=== PATIENT | female | born 1945 | race Asian ===

== ENCOUNTER 2018-07-07 08:14 | Inpatient (IN) | payer BC ==
[2018-07-07] MEDS ORDERED: FENTAnyl 50 MCG/ML VIAL (10:50)
[2018-07-07] MEDS ORDERED: PROPOFOL 20 ML (10:50)
[2018-07-07] MEDS ORDERED: MIDAZOLAM 1 MG/ML 2 ML INJ (10:50)
[2018-07-07] MEDS ORDERED: CEFAZOLIN 1 GM INJ (10:50)
[2018-07-07] MEDS: LACTATED RINGER'S 1,000 ML IV* (11:50)
[2018-07-07] MEDS: CEFAZOLIN 2 GM/50 ML (PMX) 50 ML IVPB (12:15)
[2018-07-07] MEDS ORDERED: BUPIVACAINE 0.75%/DEXT (SPINAL) 2 ML INJ (12:28)
[2018-07-07] MEDS: TRANEXAMIC ACID 1,000 MG in NS 100 ML PRE-OP X1 IVPB (12:30)
[2018-07-07] MEDS ORDERED: PHENYLephrine (100 MCG/ML) 5ML SYG (12:40)
[2018-07-07] MEDS: POLYMYXIN B 500000 UNIT INJ (12:51)
[2018-07-07] MEDS: BACITRACIN 50000 UNITS INJ (12:51)
[2018-07-07] MEDS ORDERED: ALBUMIN HUMAN 5% 500 ML (13:17)
[2018-07-07] MEDS ORDERED: DEXAMETHASONE 4 MG/ML 1 ML INJ (13:19)
[2018-07-07] MEDS ORDERED: METOCLOPRAMIDE 10 MG INJ (13:19)
[2018-07-07] MEDS ORDERED: ONDANSETRON 4 MG INJ (13:19)
[2018-07-07] MEDS ORDERED: ACETAMINOPHEN 500 MG TAB PO (13:30)
[2018-07-07] MEDS ORDERED: FENTAnyl 50 MCG/ML VIAL IV ×2 (13:30)
[2018-07-07] MEDS ORDERED: OXYCODONE/ACETAMINOPHEN (5/325) TAB PO ×2 (13:30)
[2018-07-07] MEDS ORDERED: NALBUPHINE HCL (10 MG/1 ML) INJ IV (13:30)
[2018-07-07] MEDS ORDERED: ALBUMIN HUMAN 5% 250 ML IV (13:30)
[2018-07-07] MEDS ORDERED: METOCLOPRAMIDE 10 MG INJ IV (13:30)
[2018-07-07] MEDS ORDERED: MEPERIDINE 25 MG INJ IV (13:30)
[2018-07-07] MEDS ORDERED: ONDANSETRON 4 MG INJ IV ×2 (13:30)
[2018-07-07] MEDS ORDERED: morphine 2 MG INJ IV ×2 (13:30)
[2018-07-07] MEDS ORDERED: EPHEDrine SULFATE 50 MG/5 ML SYG IV (13:30)
[2018-07-07] MEDS ORDERED: LABETALOL HCL 20MG INJ IV (13:30)
[2018-07-07] MEDS ORDERED: NALOXONE (0.4 MG/ML) INJ IV (13:30)
[2018-07-07] MEDS ORDERED: DIPHENHYDRAMINE 50 MG INJ IV ×2 (13:30)
[2018-07-07] MEDS ORDERED: HYDROmorphONE 1 MG/5 ML IV SYRINGE IV ×3 (13:30)
[2018-07-07] MEDS ORDERED: hydrALAzine 20 MG INJ IV (13:30)
[2018-07-07] MEDS ORDERED: HYDROmorphONE 0.5 MG/0.5 ML SYG IV ×2 (13:30)
[2018-07-07] MEDS ORDERED: EPHEDrine SULFATE 50 MG/5 ML SYG (13:53)
[2018-07-07] MEDS: TRANEXAMIC ACID 1,000 MG in NS 100 ML INTRA-OP X1 IVPB (14:00)
[2018-07-07] MEDS ORDERED: ROPIVACAINE 0.2% 20 ML VIAL (14:12)
[2018-07-07] MEDS ORDERED: SENNA/DOCUSATE NA (8.6MG/50MG) TAB PO (14:30)
[2018-07-07] MEDS: SOD CHLORIDE 0.9% 1,000 ML IV (15:00)
[2018-07-07] MEDS: CEFAZOLIN 1 GM/50 ML (PMX) 50 ML IVPB ×2 (15:00→22:15)
[2018-07-07] MEDS: ASPIRIN 81 MG TAB PO (22:14)
[2018-07-07] MEDS: oxyCODONE 5 MG TAB PO (22:15)
[2018-07-08] MEDS ORDERED: ALPRAZOLAM 0.5 MG TAB PO (00:30)
[2018-07-08] MEDS ORDERED: hydrALAzine 20 MG INJ IV (00:30)
[2018-07-08] MEDS: ALBUTEROL HFA 8 GM INHALER INH ×6 (01:00→20:40)
[2018-07-08] MEDS: SOD CHLORIDE 0.9% 1,000 ML IV ×2 (02:48→15:18)
[2018-07-08] MEDS: CEFAZOLIN 1 GM/50 ML (PMX) 50 ML IVPB (06:42)
[2018-07-08] MEDS: oxyCODONE 5 MG TAB PO ×3 (07:00→20:32)
[2018-07-08] MEDS: CHOLECALCIFEROL 2,000 UNIT CAP PO (08:15)
[2018-07-08] MEDS: metFORMIN 500 MG TAB PO ×2 (08:15→17:36)
[2018-07-08] MEDS: ASPIRIN 81 MG TAB PO ×2 (08:15→20:33)
[2018-07-08] MEDS: ALLOPURINOL 100 MG TAB PO (08:16)
[2018-07-08] MEDS: SPIRONOLACTONE 25 MG TAB PO (08:16)
[2018-07-08] MEDS: VERAPAMIL (SR) 240 MG TAB PO (08:16)
[2018-07-08] MEDS: CALCIUM CARBONATE (600 MG CA) TAB PO (08:17)
[2018-07-08] MEDS: LOSARTAN 50 MG TAB PO (08:17)
[2018-07-08] MEDS: FLUTICASONE/VILANTEROL 100-25 INH (08:19)
[2018-07-08 08:23] LABS: ADD MAN DIFF? NO
[2018-07-08 08:26] LABS: WHITE BLOOD COUNT 15.2 10^3/ul (4.8-10.8)
[2018-07-08 08:26] LABS: BASOPHILS % 0.1 % (0.0-2.0); HEMATOCRIT 27.9 % (37.0-47.0); HEMOGLOBIN 8.9 g/dl (12.0-16.0); LYMPHOCYTES # 1.2 10^3/ul (0.8-2.9); MEAN CORPUSCULAR HGB CONC 31.9 g/dl (32.0-37.0); MEAN CORPUSCULAR VOLUME 87.7 fl (82.0-101.0); MEAN PLATELET VOLUME 10.2 fl (7.4-10.4); MONOCYTE # 1.2 10^3/ul (0.3-0.9); MONOCYTES % 8.2 % (0.0-11.0); NEUTROPHIL # 12.6 10^3/ul (1.6-7.5); NEUTROPHILS % 83.2 % (39.0-77.0); PLATELET COUNT 240 10^3/UL (140-415); RED BLOOD COUNT 3.18 10^6/ul (4.20-5.40); RED CELL DISTRIBUTION WIDTH 13.8 % (11.5-14.5)
[2018-07-08 08:44] LABS: INR 1.08; PROTIME 14.1 Sec (11.9-14.9); PT RATIO 1.1
[2018-07-08 08:45] LABS: ANION GAP 12 (8-16); BLOOD UREA NITROGEN 27 mg/dl (7-20); CALCIUM 9.4 mg/dl (8.4-10.2); CARBON DIOXIDE 25 mmol/L (21-31); CHLORIDE 108 mmol/L (97-110); CREATININE 0.93 mg/dl (0.44-1.00); GLUCOSE 165 mg/dl (70-220); POTASSIUM 4.7 mmol/L (3.5-5.1); SODIUM 140 mmol/L (135-144)
[2018-07-08] MEDS ORDERED: CALCIUM CARBONATE 600 MG PO (09:00)
[2018-07-08] MEDS ORDERED: NON-FORMULARY/PATIENT OWN MED (Salmeterol Xinaf/Fluticasone* (Advair*) 1 INH) INHALATION (09:00)
[2018-07-08] MEDS ORDERED: NON-FORMULARY/PATIENT OWN MED (Ergocalciferol (Vitamin D2) (Vitamin D2) 2,000 UNIT) PO (09:00)
[2018-07-08] MEDS ORDERED: NON-FORMULARY/PATIENT OWN MED (Valsartan* (Diovan*) 160 MG) PO (09:00)
[2018-07-08] MEDS: CELECOXIB 100 MG CAP PO ×2 (09:47→20:33)
[2018-07-08 13:19] LABS: IRON 33 ug/dl (35-150)
[2018-07-08 13:29] LABS: % IRON SATURATION 10 % SAT (22-52); TOTAL IRON BINDING CAPACITY 332 ug/dl (241-421)
[2018-07-08 20:26] LABS: ADD UMIC NO; UR ASCORBIC ACID NEGATIVE (NEGATIVE); UR BILIRUBIN (Dip) NEGATIVE (NEGATIVE); UR BLOOD (Dip) NEGATIVE (NEGATIVE); UR CLARITY CLEAR (CLEAR); UR COLOR STRAW (YELLOW); UR GLUCOSE (Dip) NEGATIVE (NEGATIVE); UR KETONES (Dip) NEGATIVE (NEGATIVE); UR LEUKOCYTE ESTERASE (Dip) NEGATIVE Leu/ul (NEGATIVE); UR NITRITE (Dip) NEGATIVE (NEGATIVE); UR SPECIFIC GRAVITY (Dip) 1.011 (1.003-1.030); UR TOTAL PROTEIN (Dip) NEGATIVE (NEGATIVE); UR UROBILINOGEN (Dip) NEGATIVE (NEGATIVE)
[2018-07-08] MEDS: MONTELUKAST 10 MG TAB PO (20:32)
[2018-07-08] MEDS: SOD FERRIC GLUC COMPLX 125 MG in SOD CHLORIDE 0.9% 100 ML IVPB (20:32)
[2018-07-09] MEDS: ALBUTEROL HFA 8 GM INHALER INH ×3 (01:00→09:00)
[2018-07-09] MEDS: oxyCODONE 5 MG TAB PO ×2 (01:43→09:05)
[2018-07-09] MEDS: SOD CHLORIDE 0.9% 1,000 ML IV (03:48)
[2018-07-09 06:00] LABS: ADD MAN DIFF? NO
[2018-07-09 06:13] LABS: BASOPHIL # 0.1 10^3/ul (0.0-0.1); BASOPHILS % 0.5 % (0.0-2.0); EOSINOPHILS # 0.1 10^3/ul (0.0-0.5); EOSINOPHILS % 0.5 % (0.0-7.0); HEMATOCRIT 28.6 % (37.0-47.0); HEMOGLOBIN 9.1 g/dl (12.0-16.0); LYMPHOCYTES # 2.8 10^3/ul (0.8-2.9); LYMPHOCYTES % 21.8 % (15.0-51.0); MEAN CORPUSCULAR HEMOGLOBIN 27.9 pg (29.0-33.0); MEAN CORPUSCULAR HGB CONC 31.8 g/dl (32.0-37.0); MEAN CORPUSCULAR VOLUME 87.7 fl (82.0-101.0); MEAN PLATELET VOLUME 11.5 fl (7.4-10.4); MONOCYTE # 1.4 10^3/ul (0.3-0.9); NEUTROPHIL # 8.5 10^3/ul (1.6-7.5); NEUTROPHILS % 65.4 % (39.0-77.0); PLATELET COUNT 236 10^3/UL (140-415); RED BLOOD COUNT 3.26 10^6/ul (4.20-5.40)
[2018-07-09 06:27] LABS: INR 0.99; PROTIME 13.2 Sec (11.9-14.9)
[2018-07-09 06:46] LABS: ANION GAP 13 (8-16); BLOOD UREA NITROGEN 27 mg/dl (7-20); CALCIUM 10.3 mg/dl (8.4-10.2); CARBON DIOXIDE 28 mmol/L (21-31); CHLORIDE 101 mmol/L (97-110); CREATININE 1.07 mg/dl (0.44-1.00); GLUCOSE 143 mg/dl (70-220); POTASSIUM 4.6 mmol/L (3.5-5.1); SODIUM 137 mmol/L (135-144)
[2018-07-09] MEDS: VERAPAMIL (SR) 240 MG TAB PO (06:50)
[2018-07-09] MEDS: LOSARTAN 50 MG TAB PO ×2 (06:52→08:58)
[2018-07-09] MEDS: CELECOXIB 100 MG CAP PO (08:55)
[2018-07-09] MEDS: ALLOPURINOL 100 MG TAB PO (08:56)
[2018-07-09] MEDS: CHOLECALCIFEROL 2,000 UNIT CAP PO (08:57)
[2018-07-09] MEDS: ASPIRIN 81 MG TAB PO (08:57)
[2018-07-09] MEDS: FENOFIBRATE 145 MG TAB PO (08:58)
[2018-07-09] MEDS: SPIRONOLACTONE 25 MG TAB PO (08:58)
[2018-07-09] MEDS: FLUTICASONE/VILANTEROL 100-25 INH (08:59)
[2018-07-09] MEDS: CALCIUM CARBONATE (600 MG CA) TAB PO (09:00)
[2018-07-09] MEDS: metFORMIN 500 MG TAB PO (09:05)
[2018-07-09] MEDS: DOCUSATE SODIUM 250 MG CAP PO (10:30)
[2018-07-09] MEDS: HYDROCODONE/APAP (5/325) TAB PO (12:14)
== END 2018-07-09 12:30 | disposition home health service (06) | DRG 470 ==
LOC: REC 08:14 → MS1 20:35
PROVIDERS: Orthopaedic Surgery
PROC: 0SRD069 Replacement of Left Knee Joint with Oxidized Zirconium on Polyethylene Synthetic Substitute, Cemented, Open Approach (ICD-10-PCS; principal; 2018-07-07 12:00)
DX: M17.12 Unilateral primary osteoarthritis, left knee (principal); J45.909 Unspecified asthma, uncomplicated; F41.9 Anxiety disorder, unspecified; M10.9 Gout, unspecified; I12.9 Hypertensive chronic kidney disease with stage 1 through stage 4 chronic kidney disease, or unspecified chronic kidney disease; E11.22 Type 2 diabetes mellitus with diabetic chronic kidney disease; N18.3 Chronic kidney disease, stage 3 (moderate); E78.5 Hyperlipidemia, unspecified; E21.3 Hyperparathyroidism, unspecified; E66.9 Obesity, unspecified; Z68.32 Body mass index [BMI] 32.0-32.9, adult; E11.36 Type 2 diabetes mellitus with diabetic cataract; E55.9 Vitamin D deficiency, unspecified; D50.9 Iron deficiency anemia, unspecified
CPT/HCPCS: 73560; 80048; 81003; 82962; 83540; 85025; 85610; 86850; 86900; 86901; 87081; 88304; 88311; 97110; 97116; 97162; 97530

== ENCOUNTER → 2018-11-28 | Outpatient (CLI) | payer BC | END | disposition home or self-care (01) | LOC: LAB 08:00 | DX: Z01.818 Encounter for other preprocedural examination (principal) ==

== ENCOUNTER 2019-02-09 05:38 | Inpatient (IN) | payer BC ==
[2019-02-09] MEDS ORDERED: ACETAMINOPHEN 500 MG TAB PO (06:00)
[2019-02-09] MEDS: CEFAZOLIN 2 GM/50 ML (PMX) 50 ML (FOR WT < 120 KG) IVPB (06:00)
[2019-02-09] MEDS: ACETAMINOPHEN 1000MG/100ML IV 100 ML IVPB (06:32)
[2019-02-09] MEDS: DEXAMETHASONE 4 MG/ML 1 ML INJ IV (06:32)
[2019-02-09] MEDS ORDERED: CEFAZOLIN 1 GM INJ (07:00)
[2019-02-09] MEDS ORDERED: ROCURONIUM 50 MG INJ (07:00)
[2019-02-09] MEDS ORDERED: DEXAMETHASONE 4 MG/ML 5 ML INJ (07:00)
[2019-02-09] MEDS ORDERED: LIDOCAINE 2% (SDV) 5 ML INJ (07:00)
[2019-02-09] MEDS ORDERED: ONDANSETRON 4 MG INJ (07:00)
[2019-02-09] MEDS ORDERED: PROPOFOL 20 ML (07:20)
[2019-02-09] MEDS ORDERED: PHENYLephrine (100 MCG/ML) 10ML SYG ×2 (07:20→07:21)
[2019-02-09] MEDS: POLYMYXIN B 500000 UNIT INJ (07:21)
[2019-02-09] MEDS ORDERED: MIDAZOLAM 1 MG/ML 2 ML INJ (07:22)
[2019-02-09] MEDS ORDERED: EPHEDrine 50 MG INJ (07:22)
[2019-02-09] MEDS: POLYMYXIN/BACITRACIN 1L IRRIG (07:22)
[2019-02-09] MEDS: TRANEXAMIC ACID 1GM/100ML(PMX) 100 ML AT CLOSURE X1 IVPB (08:20)
[2019-02-09] MEDS ORDERED: POLYMYXIN B 500000 UNIT INJ (08:33)
[2019-02-09] MEDS: BACITRACIN 50000 UNITS INJ (08:35)
[2019-02-09] MEDS ORDERED: BUPIVACAINE 0.5% (SDV) 30 ML INJ (09:27)
[2019-02-09] MEDS ORDERED: GLYCOPYRROLATE 0.4 MG INJ (09:42)
[2019-02-09] MEDS ORDERED: NEOSTIGMINE 3 MG/3 ML SYRINGE (09:42)
[2019-02-09] MEDS: TRANEXAMIC ACID 1GM/100ML(PMX) 100 ML AT INCISION X1 IVPB (09:43)
[2019-02-09] MEDS ORDERED: NALOXONE (0.4 MG/ML) INJ IV (10:00)
[2019-02-09] MEDS ORDERED: MAGNESIUM HYDROXIDE 30ML CUP PO (10:00)
[2019-02-09] MEDS ORDERED: oxyCODONE 5 MG TAB PO (10:00)
[2019-02-09] MEDS ORDERED: NACL 0.9% 3 ML SYG IV (10:00)
[2019-02-09] MEDS ORDERED: KETOROLAC 15 MG INJ IV ×2 (10:00→10:30)
[2019-02-09] MEDS ORDERED: MEPERIDINE 25 MG INJ IV (10:30)
[2019-02-09] MEDS ORDERED: HYDROmorphONE 1 MG/5 ML IV SYRINGE IV ×3 (10:30)
[2019-02-09] MEDS ORDERED: ALBUTEROL 0.083% (NEB) 2.5 MG/3 ML AMP HHN ×2 (10:30→13:30)
[2019-02-09] MEDS ORDERED: FENTAnyl 50 MCG/ML VIAL IV ×3 (10:30)
[2019-02-09] MEDS ORDERED: OXYCODONE/ACETAMINOPHEN (5/325) TAB PO ×2 (10:30)
[2019-02-09] MEDS ORDERED: DIPHENHYDRAMINE 50 MG INJ IV (10:30)
[2019-02-09] MEDS ORDERED: LABETALOL HCL 20MG INJ IV (10:30)
[2019-02-09] MEDS ORDERED: ONDANSETRON 4 MG INJ IV (10:30)
[2019-02-09] MEDS ORDERED: EPHEDrine SULFATE 50 MG/5 ML SYG IV (10:30)
[2019-02-09] MEDS ORDERED: METOCLOPRAMIDE 10 MG INJ IV (10:30)
[2019-02-09] MEDS ORDERED: hydrALAzine 20 MG INJ IV (10:30)
[2019-02-09] MEDS: CEFAZOLIN 2 GM/50 ML (PMX) 50 ML IVPB ×2 (10:59→18:41)
[2019-02-09] MEDS: LACTATED RINGER'S 1,000 ML IV ×3 (12:47→14:00)
[2019-02-09] MEDS ORDERED: ALPRAZOLAM 0.5 MG TAB PO (13:00)
[2019-02-09] MEDS: GABAPENTIN 100 MG CAP PO ×2 (14:15→20:56)
[2019-02-09] MEDS: FLUTICASONE/VILANTEROL 100-25 INH (15:00)
[2019-02-09] MEDS: oxyCODONE 5 MG TAB PO (18:21)
[2019-02-09] MEDS: MONTELUKAST 10 MG TAB PO (20:56)
[2019-02-09] MEDS: metFORMIN 500 MG TAB PO (21:51)
[2019-02-09] MEDS: FENOFIBRATE 145 MG TAB PO (21:51)
[2019-02-10] MEDS: LACTATED RINGER'S 1,000 ML IV ×2 (02:10→10:40)
[2019-02-10] MEDS: CEFAZOLIN 2 GM/50 ML (PMX) 50 ML IVPB (02:10)
[2019-02-10 05:24] LABS: ADD MAN DIFF? NO
[2019-02-10 05:34] LABS: BASOPHILS % 0.2 % (0.0-2.0); EOSINOPHILS % 0.2 % (0.0-7.0); HEMOGLOBIN 7.6 g/dl (12.0-16.0); LYMPHOCYTES # 1.9 10^3/ul (0.8-2.9); LYMPHOCYTES % 18.1 % (15.0-51.0); MEAN CORPUSCULAR HEMOGLOBIN 27.1 pg (29.0-33.0); MEAN CORPUSCULAR HGB CONC 31.7 g/dl (32.0-37.0); MEAN CORPUSCULAR VOLUME 85.7 fl (82.0-101.0); MEAN PLATELET VOLUME 12.1 fl (7.4-10.4); MONOCYTE # 1.1 10^3/ul (0.3-0.9); MONOCYTES % 10.9 % (0.0-11.0); NEUTROPHIL # 7.2 10^3/ul (1.6-7.5); NEUTROPHILS % 70.1 % (39.0-77.0); PLATELET COUNT 196 10^3/UL (140-415)
[2019-02-10 05:34] LABS: WHITE BLOOD COUNT 10.2 10^3/ul (4.8-10.8)
[2019-02-10 05:52] LABS: PHOSPHORUS 3.6 mg/dl (2.5-4.9)
[2019-02-10 05:52] LABS: MAGNESIUM 1.8 mg/dl (1.7-2.5)
[2019-02-10 05:56] LABS: ANION GAP 7 (5-13); BLOOD UREA NITROGEN 35 mg/dl (7-20); CALCIUM 9.5 mg/dl (8.4-10.2); CARBON DIOXIDE 28 mmol/L (21-31); CHLORIDE 104 mmol/L (97-110); CREATININE 1.07 mg/dl (0.44-1.00); GLUCOSE 111 mg/dl (70-220); POTASSIUM 4.5 mmol/L (3.5-5.1); SODIUM 139 mmol/L (135-144)
[2019-02-10 08:53] LABS: IRON 23 ug/dl (35-150)
[2019-02-10] MEDS: FLUTICASONE/VILANTEROL 100-25 INH (09:00)
[2019-02-10] MEDS ORDERED: FENOFIBRATE 145 MG TAB PO (09:00)
[2019-02-10 09:02] LABS: % IRON SATURATION 6 % SAT (22-52); TOTAL IRON BINDING CAPACITY 371 ug/dl (241-421)
[2019-02-10] MEDS: metFORMIN 500 MG TAB PO (09:02)
[2019-02-10] MEDS: CELECOXIB 100 MG CAP PO (09:03)
[2019-02-10] MEDS: SPIRONOLACTONE 25 MG TAB PO (09:03)
[2019-02-10] MEDS: ASPIRIN (EC) 81 MG TAB PO (09:03)
[2019-02-10] MEDS: DOCUSATE SODIUM 100 MG CAP PO (09:03)
[2019-02-10] MEDS: GABAPENTIN 100 MG CAP PO ×2 (09:04→13:29)
[2019-02-10] MEDS: ALLOPURINOL 100 MG TAB PO (09:04)
[2019-02-10] MEDS: VERAPAMIL (SR) 240 MG TAB PO (09:04)
[2019-02-10] MEDS: LOSARTAN 50 MG TAB PO (09:05)
[2019-02-10] MEDS: oxyCODONE 5 MG TAB PO ×2 (09:05→17:34)
[2019-02-10 09:28] LABS: FERRITIN 21.5 ng/ml (11.1-264.0)
[2019-02-10] MEDS ORDERED: ONDANSETRON 4 MG INJ IV (10:00)
[2019-02-10 10:46] LABS: IMMEDIATE SPIN CROSSMATCH 1 2
[2019-02-10] MEDS: SOD CHLORIDE 0.9% 250 ML IV* (11:00)
[2019-02-11] MEDS ORDERED: PANTOPRAZOLE (EC) 40 MG TAB PO (06:00)
== END 2019-02-10 18:20 | disposition home health service (06) | DRG 470 ==
LOC: REC 05:38 → MS1 11:06
PROVIDERS: Orthopaedic Surgery
PROC: 0SRC0J9 Replacement of Right Knee Joint with Synthetic Substitute, Cemented, Open Approach (ICD-10-PCS; principal; 2019-02-09 07:30)
DX: M17.10 Unilateral primary osteoarthritis, unspecified knee (principal); D62 Acute posthemorrhagic anemia; M10.9 Gout, unspecified; J45.909 Unspecified asthma, uncomplicated; F41.9 Anxiety disorder, unspecified; D50.9 Iron deficiency anemia, unspecified; I12.9 Hypertensive chronic kidney disease with stage 1 through stage 4 chronic kidney disease, or unspecified chronic kidney disease; N18.3 Chronic kidney disease, stage 3 (moderate); J44.9 Chronic obstructive pulmonary disease, unspecified; E66.9 Obesity, unspecified; E78.5 Hyperlipidemia, unspecified; E11.22 Type 2 diabetes mellitus with diabetic chronic kidney disease; Z68.31 Body mass index [BMI] 31.0-31.9, adult
CPT/HCPCS: 36430; 73560; 80048; 82728; 82962; 83540; 83735; 84100; 85025; 86850; 86900; 86901; 86920; 87081; 88304; 88311; 97116; 97161; 97530